=== PATIENT | male | born 1955 | race Caucasian/White ===

== ENCOUNTER 2018-07-10 05:54 | Day surgery (SDC) | payer OTHER ==
[~2018-07-10] VITALS: Ht 165.1 cm; Wt 59.4 kg
[2018-07-10 07:28] VITALS: Ht 165.1 cm; Wt 59.4 kg
[2018-07-10 07:36] VITALS: BP 160/78; PULSE 103; RESP 18
[2018-07-10] MEDS ORDERED: HYDROCHLOROTHIAZIDE PO (07:36)
[2018-07-10] MEDS ORDERED: METFORMIN PO (07:36)
[2018-07-10] MEDS ORDERED: AMLODIPINE PO (07:36)
[2018-07-10] MEDS ORDERED: MIDAZOLAM 1 MG/ML 2 ML INJ ONE ×2 (08:57)
[2018-07-10] MEDS ORDERED: FENTAnyl 50 MCG/ML VIAL ONE (08:57)
[2018-07-10 09:22] VITALS: BP 117/60; RESP 16
== END 2018-07-10 15:41 | disposition home or self-care (01) ==
LOC: GIL 05:54
PROVIDERS: ATTEND Internal Medicine Gastroenterology
DX: K57.30 Diverticulosis of large intestine without perforation or abscess without bleeding (principal); D50.9 Iron deficiency anemia, unspecified; K64.8 Other hemorrhoids; K44.9 Diaphragmatic hernia without obstruction or gangrene; K21.9 Gastro-esophageal reflux disease without esophagitis; E11.9 Type 2 diabetes mellitus without complications; I10 Essential (primary) hypertension
CPT/HCPCS: 43239; 45378; 82962; 88305; 88312; J2250; J3010; Z7610